=== PATIENT | male | born 1990 | race Hispanic/Latino ===

== ENCOUNTER 2018-07-04 06:15 | Inpatient (IN) | payer BC, OTHER ==
[2018-07-04 06:37] LABS: #Eosinphils 0.2 thou/uL (0.0-0.7); #Lymphocytes 3.4 thou/uL (1.20-3.40); #Monocytes 1.1 thou/uL (0.11-0.59); #Neutrophils 4.1 thou/uL (1.40-6.50); %Basophils 0.4 % (0.0-1.0); %Eosinophils 2.4 % (0.0-10.0); %Lymphocytes 38.8 % (21.0-51.0); %Monocytes 11.9 % (0.0-10.0); %Neutrophils 46.5 % (42.0-75.0); Hemoglobin 15.6 g/dL (14.0-18.0); Mean Corpuscular HGB CONC 33.5 g/dL (32.0-36.0); Mean Corpuscular Hemoglobin 31.2 pg (27.0-31.0); Mean Corpuscular Volume 93.3 fL (78.0-98.0); Platelet Count 201 thou/uL (130-400); RBC Distribution Width 11.7 % (11.5-14.5); Red Blood Cell (RBC) Count 5.01 mill/uL (4.70-6.10); White Blood Cell (WBC) Count 8.8 thou/uL (4.8-10.8)
[2018-07-04 06:47] LABS: ALT (SGPT) 38 U/L (8-55); AST (SGOT) 32 U/L (5-34); Albumin 4.2 g/dL (3.5-5.0); Alkaline Phosphatase 117 U/L (40-150); Anion Gap 13 mmol/L (10-20); BUN (Urea Nitrogen) 15 mg/dL (8.9-20.6); Bilirubin, Total 0.4 mg/dL (0.2-1.2); Calc. Creatinine Clearance 0 mL/min (70-130); Carbon Dioxide 24 mmol/L (22-29); Chloride 106 mmol/L (98-107); Estimated GFR-MDRD Greater than 90; Globulin 3.1 g/dL (2.4-3.5); Glucose 114 mg/dL (70-105); Lipase 49 U/L (8-78); Potassium 3.5 mmol/L (3.5-5.1); Protein, Total 7.3 g/dL (6.0-8.3); Sodium 139 mmol/L (136-145)
[2018-07-04] MEDS ORDERED: Gentamicin 80 MG/2 ML VIAL ONE (06:51)
[2018-07-04] MEDS ORDERED: Adacel (T-DAP) 0.5 ML VIAL ONE (06:51)
[2018-07-04] MEDS ORDERED: CEFAZOLIN 2 GM/50 ML BAG ONE (06:51)
[2018-07-04] MEDS ORDERED: Ondansetron PF 4 MG/2 ML Vial ONE (07:03)
[2018-07-04] MEDS ORDERED: Morphine 4 MG/ML VIAL ONE (07:03)
[2018-07-04] MEDS ORDERED: Lidocaine 1% w/Epinephrine 1:100K 20 ML VIAL ONE ×2 (07:09→07:11)
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
[2018-07-04] MEDS ORDERED: Ondansetron PF 4 MG/2 ML Vial IVP PRN (09:27)
[2018-07-04] MEDS ORDERED: Ondansetron ODT 4 MG TAB PO PRN (09:27)
[2018-07-04] MEDS ORDERED: Acetaminophen 325 MG TAB PO PRN (09:27)
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
[2018-07-04 13:33] VITALS: BMI 28.8
[2018-07-04] MEDS ORDERED: CEFAZOLIN 1 GM in Sodium Chloride 0.9% 100 ML IVPB SCH (14:00)
[2018-07-04] MEDS: Famotidine 20 MG TAB PO SCH ×2 (14:16→20:37)
[2018-07-04] MEDS: CEFAZOLIN 1 GM in Sodium Chloride 0.9% 100 ML IVPB SCH ×3 (14:16→23:45)
[2018-07-04] MEDS: Ibuprofen 800 MG TAB PO SCH ×2 (14:16→20:36)
[2018-07-04] MEDS ORDERED: Iopamidol 370 76% 100 ML VIAL ONE (15:50)
[2018-07-05] MEDS: CEFAZOLIN 1 GM in Sodium Chloride 0.9% 100 ML IVPB SCH (05:43)
[2018-07-05] MEDS: Ibuprofen 800 MG TAB PO SCH ×2 (05:43→12:24)
[2018-07-05] MEDS: Famotidine 20 MG TAB PO SCH (08:59)
[2018-07-05] MEDS ORDERED: Acetaminophen 500 MG TAB PO PRN (11:26)
--- NOTE | 2018-07-05 12:08 | CT ---
PRELIMINARY REPORT/[facility]/EMERGENCY AFTER HOURS PROCEDURE: EXAM: CT Head Without Intravenous Contrast EXAM DATE/TIME: 07/05/2018 3:08 AM CLINICAL HISTORY: 28 years old, male; Condition or disease; Other: Head injury; Patient HX: F/u head injury TECHNIQUE: Axial computed tomography images of the head/brain without intravenous contrast. COMPARISON: CT Brain WO Con 07/04/2018 6:32 AM FINDINGS: Brain: No evidence of acute intracranial hemorrhage, extraxial fluid or midline shift. Ventricles: Normal. No ventriculomegaly. Bones/joints: Redemonstration of mildly depressed left parietal calvarial fracture with overlying sca lp swelling/hematoma and skin mario. Sinuses: Normal as visualized. No acute sinusitis. Mastoid air cells: Normal as visualized. No mastoid effusion. Soft tissues: Normal. IMPRESSION: 1. Stable appearing mildly depressed left parietal bone calvarial fracture with overlying scalp swell ing/hematoma and skin mario. 2. No evidence of acute intracranial hemorrhage, extraxial fluid or midline shift. Thank you for allowing us to participate in the care of your patient. Dictated and Authenticated by: Vinicio Garsia MD 07/05/2018 3:43 AM Central Time ([place] & [place]) FINAL REPORT CT HEAD NONCONTRAST: Date: 07-05-18 Performed on emergency basis at 0309 hours. History: Head injury. Comparison: 07-04-18 FINDINGS: I agree with the preliminary report by Dr. Garsia from [facility]. Mildly depressed left parie rachel fracture with overlying scalp injury is similar in appearance to the prior study. No new abnormal ities. POS: [facility]
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
[2018-07-05 12:41] VITALS: BP 146/88; TEMP 97.9
[2018-07-05] MEDS ORDERED: Cephalexin 250 MG CAP PO SCH (15:00)
== END 2018-07-05 15:47 | disposition home or self-care (01) | DRG 87 ==
LOC: ERS 06:15 → SURG B 07:25
PROVIDERS: ADMIT Surgery; ATTEND Surgery
PROC: 0HQ0XZZ Repair Scalp Skin, External Approach (ICD-10-PCS; principal; 2018-07-04)
DX: S02.91XA Unspecified fracture of skull, initial encounter for closed fracture (principal); V43.52XA Car driver injured in collision with other type car in traffic accident, initial encounter; S01.01XA Laceration without foreign body of scalp, initial encounter
CPT/HCPCS: 70450; 71260; 72125; 74177; 80053; 83690; 85025; 86850; 86900; 86901; 90715; G0390; J0690; J1580; J2001; J2270; J2405; J7050